=== PATIENT | male | born 1970 | race Caucasian/White ===

== ENCOUNTER 2018-09-28 02:23 | Emergency (ER) | payer MEDICAID ==
[2018-09-28 05:46] LABS: WHITE BLOOD COUNT 5.4 10^3/ul (4.8-10.8)
[2018-09-28 05:46] LABS: ADD MAN DIFF? NO; BASOPHILS % 0.6 % (0.0-2.0); EOSINOPHILS % 0.2 % (0.0-7.0); HEMATOCRIT 44.4 % (42.0-52.0); HEMOGLOBIN 15.1 g/dl (14.0-18.0); LYMPHOCYTES # 1.5 10^3/ul (0.8-2.9); MEAN CORPUSCULAR HEMOGLOBIN 29.8 pg (29.0-33.0); MEAN CORPUSCULAR VOLUME 87.7 fl (82.0-101.0); MEAN PLATELET VOLUME 12.1 fl (7.4-10.4); MONOCYTE # 0.4 10^3/ul (0.3-0.9); MONOCYTES % 8.1 % (0.0-11.0); NEUTROPHIL # 3.4 10^3/ul (1.6-7.5); NEUTROPHILS % 62.7 % (39.0-77.0); PLATELET COUNT 164 10^3/UL (140-415); RED BLOOD COUNT 5.06 10^6/ul (4.70-6.10); RED CELL DISTRIBUTION WIDTH 12.1 % (11.5-14.5)
[2018-09-28 06:14] LABS: ANION GAP 17 (5-13); BLOOD UREA NITROGEN 15 mg/dl (7-20); CARBON DIOXIDE 27 mmol/L (21-31); CHLORIDE 94 mmol/L (97-110); CREATININE 0.64 mg/dl (0.61-1.24); Estimated GFR > 60 mL/min (>60); GLUCOSE 348 mg/dl (70-220); SODIUM 138 mmol/L (135-144)
[2018-09-28 06:26] LABS: TROPONIN-I < 0.012 ng/ml (0.000-0.120)
[2018-09-28] MEDS: SOD CHLORIDE 0.9% 1,000 ML IV (06:44)
[2018-09-28] MEDS: KETOROLAC 15 MG INJ IV (06:44)
== END 2018-09-28 07:11 | disposition home or self-care (01) ==
LOC: E/R 02:23
DX: F41.9 Anxiety disorder, unspecified (principal); R73.9 Hyperglycemia, unspecified; Z87.891 Personal history of nicotine dependence
CPT/HCPCS: 36415; 71045; 80048; 84484; 85025; 93005; 96374; 99285-25